=== PATIENT | female | born 1980 | race Caucasian/White ===

== ENCOUNTER 2017-07-21 05:23 | Emergency (ER) | payer OTHER ==
[~2017-07-21] VITALS: Ht 160 cm; Wt 89.0 kg
[2017-07-21 05:28] VITALS: Ht 160 cm; Wt 89.0 kg
[2017-07-21 06:58] VITALS: BP 126/83
== END 2017-07-21 06:58 | disposition home or self-care (01) ==
LOC: ED 05:23
DX: S86.812A Strain of other muscle(s) and tendon(s) at lower leg level, left leg, initial encounter (principal); S39.012A Strain of muscle, fascia and tendon of lower back, initial encounter; S70.02XA Contusion of left hip, initial encounter; W18.39XA Other fall on same level, initial encounter; Y93.89 Activity, other specified; Y92.89 Other specified places as the place of occurrence of the external cause; Y99.8 Other external cause status
CPT/HCPCS: J1885

== ENCOUNTER 2020-04-12 11:31 | Emergency (ER) | payer MEDICAID ==
[~2020-04-12] VITALS: Ht 157.5 cm; Wt 103.0 kg
[2020-04-12 11:47] VITALS: Ht 157.5 cm; Wt 103.0 kg
[2020-04-12 13:16] VITALS: BP 131/85
== END 2020-04-12 13:16 | disposition home or self-care (01) ==
LOC: ED 11:31
DX: M25.532 Pain in left wrist (principal); R22.32 Localized swelling, mass and lump, left upper limb